=== PATIENT | male | born 1980 | race Caucasian/White ===

== ENCOUNTER 2020-01-09 18:07 | Emergency (ER) | payer SELFPAY ==
[2020-01-10] MEDS ORDERED: ZIPR20 (10:38)
[2020-01-10] MEDS ORDERED: HALO2 (10:38)
[2020-01-10] MEDS ORDERED: GABA100 (10:39)
== END 2020-01-09 19:30 | disposition left against medical advice (07) ==
LOC: ER 18:07
DX: Z53.21 Procedure and treatment not carried out due to patient leaving prior to being seen by health care provider (principal)

== ENCOUNTER 2020-01-10 10:11 | Observation (INO) | payer OTHER ==
[~2020-01-10] VITALS: Ht 177.8 cm; Wt 77.1 kg
[2020-01-10] MEDS ORDERED: ZIPR20 (10:38)
[2020-01-10] MEDS ORDERED: HALO2 (10:38)
[2020-01-10] MEDS ORDERED: GABA100 (10:39)
[2020-01-10 11:01] LABS: Source, Urine Clean Catch
[2020-01-10 11:08] LABS: Bilirubin, Urine Neg (Neg); Blood, Urine Neg (Neg); Glucose Qualitative, Urine Neg (Neg); Ketones, Urine Neg (Neg); Leukocyte Esterase, Urine Neg (Neg); Nitrite, Urine Neg (Neg); Protein, Urine Neg (Neg); Specific Gravity, Urine 1.005 (1.003-1.022); Urobilinogen, Urine NORM (Normal); pH, Urine 6.5 (5.0-8.0)
[2020-01-10 11:09] LABS: Appearance, Urine Clear (Clear); Color, Urine Pale Yellow (P-Yellow)
[2020-01-10 11:27] LABS: U Amphetamine Screen Not Detected; U Barbituate Screen Not Detected; U Benzodiazapine Screen Not Detected; U Buprenorphine Screen Not Detected; U Cannabinoids Screen Not Detected; U Cocaine Screen Not Detected; U Methadone Screen Not Detected; U Methamphetamine Screen Not Detected; U Opiates Screen Not Detected; U Oxycodone Screen Not Detected; U Phencyclidine Screen Not Detected; U Propoxyphene Screen Not Detected
[2020-01-10 11:34] LABS: BASOPHILS ABSOLUTE AUTO 0.06 K/mm3 (0.00-0.23); BASOPHILS PERCENT AUTO 1 % (0-2); EOSINOPHILS ABSOLUTE AUTO 0.07 K/mm3 (0.00-0.68); EOSINOPHILS PERCENT AUTO 1 % (0-6); Hematocrit 37.9 % (37.0-53.0); Hemoglobin 12.5 g/dL (13.5-17.5); IMMATURE GRAN ABSOLUTE AUTO 0.01 K/mm3 (0.00-0.10); IMMATURE GRAN PERCENT AUTO 0 % (0-1); LYMPHOCYTES ABSOLUTE AUTO 3.57 K/mm3 (0.84-5.20); LYMPHOCYTES PERCENT AUTO 46 % (21-46); MONOCYTES ABSOLUTE AUTO 0.42 K/mm3 (0.16-1.47); MONOCYTES PERCENT AUTO 5 % (4-13); Mean Corpuscular HGB 29.6 pg (26.0-34.0); Mean Corpuscular Volume 90 fL (80-100); Mean Platelet Volume 9.8 fL (9.1-12.4); NEUTROPHILS ABSOLUTE AUTO 3.71 K/mm3 (1.96-9.15); NEUTROPHILS PERCENT AUTO 47 % (41-73); Platelet Count 290 K/mm3 (150-400); RDW Standard Deviation 52.3 fL (35.1-46.3); Red Blood Cell Count 4.22 M/mm3 (4.30-5.90); White Blood Cell Count 7.84 K/mm3 (4.00-11.30)
[2020-01-10 11:59] LABS: Alanine Aminotransfer (ALT/SGP 36 U/L (12-78); Albumin, Blood 3.4 g/dL (3.4-5.0); Albumin/Globulin Ratio 0.9 (0.8-1.8); Alk Phos 49 U/L (50-136); Anion Gap 7 mmol/L (6-16); Aspartate Aminotrans (AST/SGOT 36 U/L (12-37); Bilirubin, Total 0.3 mg/dL (0.1-1.0); Blood Urea Nitrogen 6 mg/dL (8-24); Bun/Creatinine Ratio 9.1 (12.0-20.0); CO2, Blood 28 mmol/L (21-32); Calcium, Blood 8.2 mg/dL (8.5-10.1); Chloride, Blood 112 mmol/L (98-108); Creatinine, Blood 0.66 mg/dL (0.60-1.20); Ethanol (Alcohol), Blood, Med 299 mg/dL; Free Thyroxine 0.91 ng/dL (0.70-1.60); Globulin, Blood 3.6 g/dL (2.2-4.0); Glomerular Filtration Rate >60 (60-); Glucose, Blood 99 mg/dL (70-99); Potassium, Blood 3.7 mmol/L (3.5-5.5); Salicylate <1.7 mg/dL (2.8-20.0); Sodium, Blood 147 mmol/L (136-145)
[2020-01-10 12:02] LABS: Acetaminophen, Random <2.0 ug/mL (10.0-30.0)
[2020-01-11] MEDS ORDERED: HALO5 PO (09:54)
[2020-01-11] MEDS ORDERED: BUPR150ER PO (09:54)
[2020-01-11] MEDS ORDERED: Seroquel Xr50 MG PO (09:54)
== END 2020-01-11 11:00 | disposition home or self-care (01) ==
LOC: ER 10:11 → EOR 10:12
PROVIDERS: ADMIT Emergency Medicine
DX: F31.9 Bipolar disorder, unspecified (principal); F20.9 Schizophrenia, unspecified; F17.200 Nicotine dependence, unspecified, uncomplicated; Z88.6 Allergy status to analgesic agent; Z59.0 Homelessness; Z91.14 Patient's other noncompliance with medication regimen; F10.129 Alcohol abuse with intoxication, unspecified; Y90.8 Blood alcohol level of 240 mg/100 ml or more; Z20.828 Contact with and (suspected) exposure to other viral communicable diseases
CPT/HCPCS: 80053; 81003; 84439; 84443; 85025; 99285; G0378; G0480; Q3014

== ENCOUNTER 2020-01-14 20:15 | Inpatient (IN) | payer OTHER ==
[~2020-01-14] VITALS: Ht 175.3 cm; Wt 78.0 kg
[~2020-01-14 20:15] MED LIST: BUPR150ER PO; GABA100; HALO2; HALO5 PO; Seroquel Xr50 MG PO; ZIPR20
[2020-01-14 20:37] LABS: Source, Urine Clean Catch
[2020-01-14 20:41] LABS: Bilirubin, Urine Neg (Neg); Blood, Urine 5+ (Neg); Glucose Qualitative, Urine Neg (Neg); Ketones, Urine 2+ (Neg); Leukocyte Esterase, Urine Neg (Neg); Nitrite, Urine Neg (Neg); Protein, Urine 2+ (Neg); Specific Gravity, Urine 1.025 (1.003-1.022); Urobilinogen, Urine NORM (Normal)
[2020-01-14 20:43] LABS: Appearance, Urine Clear (Clear); Color, Urine Yellow (P-Yellow)
[2020-01-14 20:47] LABS: Amorphous Light (0-Heavy); Bacteria Few /hpf; Mucus Light (0-Heavy); Squamous Epithelial Cells Rare /hpf (Few); White Blood Cells, Urine 0-2 /hpf (0-5)
[2020-01-14 20:52] LABS: BASOPHILS ABSOLUTE AUTO 0.03 K/mm3 (0.00-0.23); BASOPHILS PERCENT AUTO 0 % (0-2); EOSINOPHILS PERCENT AUTO 0 % (0-6); Hematocrit 35.2 % (37.0-53.0); Hemoglobin 11.5 g/dL (13.5-17.5); IMMATURE GRAN ABSOLUTE AUTO 0.15 K/mm3 (0.00-0.10); IMMATURE GRAN PERCENT AUTO 1 % (0-1); LYMPHOCYTES ABSOLUTE AUTO 0.86 K/mm3 (0.84-5.20); LYMPHOCYTES PERCENT AUTO 4 % (21-46); MONOCYTES ABSOLUTE AUTO 2.08 K/mm3 (0.16-1.47); MONOCYTES PERCENT AUTO 10 % (4-13); Mean Corpuscular HGB Conc 32.7 g/dL (31.5-36.5); Mean Corpuscular Volume 89 fL (80-100); Mean Platelet Volume 10.3 fL (9.1-12.4); NEUTROPHILS ABSOLUTE AUTO 18.76 K/mm3 (1.96-9.15); NEUTROPHILS PERCENT AUTO 86 % (41-73); Platelet Count 289 K/mm3 (150-400); RDW Coefficient Variation 15.7 % (11.7-14.2); RDW Standard Deviation 51.5 fL (35.1-46.3); Red Blood Cell Count 3.96 M/mm3 (4.30-5.90); White Blood Cell Count 21.88 K/mm3 (4.00-11.30)
[2020-01-14 21:04] LABS: U Amphetamine Screen DETECTED; U Barbituate Screen Not Detected; U Benzodiazapine Screen Not Detected; U Buprenorphine Screen Not Detected; U Cannabinoids Screen Not Detected; U Cocaine Screen Not Detected; U Methadone Screen Not Detected; U Methamphetamine Screen DETECTED; U Opiates Screen Not Detected; U Oxycodone Screen Not Detected; U Phencyclidine Screen Not Detected; U Propoxyphene Screen Not Detected
[2020-01-14 21:11] LABS: Ethanol (Alcohol), Blood, Med <3 mg/dL; Salicylate 2.8 mg/dL (2.8-20.0)
[2020-01-14 21:21] LABS: Alanine Aminotransfer (ALT/SGP 84 U/L (12-78); Alk Phos 67 U/L (50-136); Anion Gap 24 mmol/L (6-16); Aspartate Aminotrans (AST/SGOT 244 U/L (12-37); Bilirubin, Total 1.3 mg/dL (0.1-1.0); Blood Urea Nitrogen 89 mg/dL (8-24); Bun/Creatinine Ratio 31.2 (12.0-20.0); CO2, Blood 13 mmol/L (21-32); Calcium, Blood 8.4 mg/dL (8.5-10.1); Chloride, Blood 93 mmol/L (98-108); Creatinine, Blood 2.85 mg/dL (0.60-1.20); Glomerular Filtration Rate 26 (60-); Glucose, Blood 49 mg/dL (70-99); Potassium, Blood 4.7 mmol/L (3.5-5.5); Sodium, Blood 130 mmol/L (136-145)
[2020-01-14 21:22] LABS: Acetaminophen, Random <2.0 ug/mL (10.0-30.0)
[2020-01-14 22:01] LABS: PCO2 Arterial 20.1 mmHg (35-45); PO2 Arterial 122 mmHg (80-100)
[2020-01-14 22:04] LABS: Magnesium, Blood 3.2 mg/dL (1.6-2.4)
[2020-01-14 22:04] LABS: pH Blood Arterial 7.25 (7.35-7.45)
[2020-01-14 22:07] LABS: Phosphorus, Blood 8.9 mg/dL (2.5-4.9)
--- NOTE | 2020-01-14 23:27 | NUR ---
2255 PT ADMITTED TO PCU 10 PER CART FROM ER; REPORT RECEIVED FROM WILMER DURAN VIA ER; PT SLIDE INTO BED X 4 ASSIST; PT HALLUCINATING AND MUMBLING INCOHERENTLY TO SELF; PT DID STAND X 1 STANDBY ASSIST AND VOIDED 800ML VIA URINAL; BED ALARM APPLIED; PT HAS ABRASIONS NOTED OVER ENTIRE BODY FROM HEAD TO TOE.
--- NOTE | 2020-01-15 04:40 | NUR ---
SHIFT SUMMARY: 39 Y/O MALE HAD VERY RESTLESS NIGHT ALL SHIFT; PT ALERT PERSON ONLY, UNABLE TO FOLLOW ANY DIRECTIONS, CONFUSED; ATTEPTING CLIMB OOB, PULL AT LINES AND TELEMETRY; JARED VEST AND BILATERAL WRIST RESTRAINTS WERE APPLIED; PT WAS GIVEN ATIVAN 2MG AND 4MG IVP AND ZYPREXA 5MG IM WITH SLIGHT AFFECT PATIENT STILL SQUIRMING AROUND IN BED AND TALKING INCOHERENTLY ALL SHIFT; PT INCONTINENT AND FREQUENTLY PULLS OFF PULL UP ATTENDS WITH LINEN AND GOWN CHANGED FREQUENTLY; BED ALARM APPLIED, BED LOW POSITION WITH CALL LIGHT AT SIDE; PT DID HAVE TEMP 102.8 WITH BLOOD CULTURES DRAWN AND PT REFUSED TO TAKE ANY TYLENOL FROM THIS NURSE AFTER HE TOOK SIPS OF WATER.
[2020-01-15 04:41] LABS: Bun/Creatinine Ratio 40.4 (12.0-20.0); Calcium, Blood 7.9 mg/dL (8.5-10.1); Creatinine, Blood 1.66 mg/dL (0.60-1.20); Potassium, Blood 4.2 mmol/L (3.5-5.5)
--- NOTE | 2020-01-15 11:32 | NUR ---
PO OJ GIVEN, DRANK WITHOUT DIFFICULTY.
--- NOTE | 2020-01-15 12:12 | NUR ---
ASSISTED PT WITH EATING A PIZZA POCKET. TOLERATED WELL.
--- NOTE | 2020-01-15 17:58 | NUR ---
SHIFT SUMMARY; SOMMULENT THROUGHOUT SHIFT, AWAKES TO VERBAL AND PAINFUL STIMULI. ORIENTED TO SELF ONLY. AGITATED AND DIFFICULT TO REDIRECT. REMAINS IN JARED VEST AND BILATERAL WRIST RESTRAINTS. REMOVE RESTRAINTS FOR REPOSITIONING AND BED CHANGE. PO FLUIDS AND LUNCH PROVIDED AND INJESTED WITHOUT DIFFICULTY. SCRATCHES THROUGHOUT BODY. BILATERAL FEET REDNESS WITH SCABS AND SCRATCHES, APPEAR TO HAVE BEEN WITHOUT SHOES OUTDOORS. MEDICATED PER ORDERS FOR AGITATION NEEDED. INTERMITANTLY YELLS AND APPEARS TO BE HAVING AUDITORY HALLUCINATIONS. MUMBLES TO SELF INTERMITANTLY. INCONTINENT IN ATTENDS MULTIPLE TIMES AND CHANGED NEEDED. LINEN CHANGE X2 DURING SHIFT. VSS, WILL CONTINUE TO MONITOR AND TREAT UNTIL CHANGE OF SHIFT.
--- NOTE | 2020-01-15 22:40 | NUR ---
PHYSICIAN NOTIFIED PT UNABLE TO TAKE PO MEDS AT THIS TIME. PT HAS FEVER OF 102.6. COOL RAGS PLACED ON PT. ORDER FOR UT TYLENOL PLACED PER PHYSICIAN. WAITING FOR PHARMACY TO VERIFY.
[2020-01-16 04:13] LABS: BASOPHILS ABSOLUTE AUTO 0.02 K/mm3 (0.00-0.23); BASOPHILS PERCENT AUTO 0 % (0-2); EOSINOPHILS ABSOLUTE AUTO 0.04 K/mm3 (0.00-0.68); EOSINOPHILS PERCENT AUTO 1 % (0-6); Hematocrit 28.7 % (37.0-53.0); Hemoglobin 9.2 g/dL (13.5-17.5); IMMATURE GRAN ABSOLUTE AUTO 0.02 K/mm3 (0.00-0.10); IMMATURE GRAN PERCENT AUTO 0 % (0-1); LYMPHOCYTES ABSOLUTE AUTO 1.39 K/mm3 (0.84-5.20); LYMPHOCYTES PERCENT AUTO 18 % (21-46); MONOCYTES ABSOLUTE AUTO 1.05 K/mm3 (0.16-1.47); MONOCYTES PERCENT AUTO 14 % (4-13); Mean Corpuscular HGB 28.8 pg (26.0-34.0); Mean Corpuscular HGB Conc 32.1 g/dL (31.5-36.5); Mean Corpuscular Volume 90 fL (80-100); Mean Platelet Volume 9.8 fL (9.1-12.4); NEUTROPHILS ABSOLUTE AUTO 5.13 K/mm3 (1.96-9.15); NEUTROPHILS PERCENT AUTO 67 % (41-73); Platelet Count 175 K/mm3 (150-400); RDW Coefficient Variation 16.2 % (11.7-14.2); RDW Standard Deviation 53.3 fL (35.1-46.3); White Blood Cell Count 7.65 K/mm3 (4.00-11.30)
[2020-01-16 04:30] LABS: Anion Gap 4 mmol/L (6-16); Blood Urea Nitrogen 24 mg/dL (8-24); Bun/Creatinine Ratio 29.4 (12.0-20.0); CO2, Blood 27 mmol/L (21-32); Calcium, Blood 8.4 mg/dL (8.5-10.1); Chloride, Blood 111 mmol/L (98-108); Creatinine, Blood 0.82 mg/dL (0.60-1.20); Glomerular Filtration Rate >60 (60-); Glucose, Blood 92 mg/dL (70-99); Potassium, Blood 3.7 mmol/L (3.5-5.5); Sodium, Blood 142 mmol/L (136-145)
--- NOTE | 2020-01-16 06:22 | NUR ---
SHIFT SUMMARY PT ALERT AND ORIENTED TO SELF. PT CONFUSED AND AGGITATED AT TIMES. MEDICATIONS GIVEN PER EMAR FOR AGGITATIOIN. PT INCOMPREHENSIBLE WITH SPEECH. PT ABLE TO USE URINAL AT TIMES. PT ABLE TO TURN SELF IN BED. PT IN JARED VEST AND BILATERAL SOFT WRIST RESTRAINTS. ASSESSED PER PROTOCOL. PT HAD INCREASE IN TEMPERATURE, PHYSICIAN NOTIFIED AND D/T ASPIRATION RISK TYLENOL SUPPOSITORY ORDERED. TEMP DECREASED TO 99.3. BP STABLE. HR STABLE. CIWA SCORE UNDER 8 T/O SHIFT. WILL CONTINUE TO MONITOR UNTIL REPORT GIVEN TO ALAINA GUILLEN.
--- NOTE | 2020-01-16 15:30 | NUR ---
DR. BENITO AT BEDSIDE. DISCUSSED POC. NOTIFIED HER RESTRAINTS WERE REMOVED THIS AM. PATIENT HAS BEEN SLEEPING THROUGHOUT MOST OF THE SHIFT AND HAS BEEN COOPERATIVE WITH CARE. HE WAS ABLE TO EAT BREAKFAST AND LUNCH. HE HAD A TEMP LAST NIGHT, HIGHEST 102.7 AND RECEIVED TYLENOL RECTALLY. HE ALSO RECEIVED HALDOL, ATIVAN, AND BENADRYL LAST NIGHT. CIWA 5-6. WHEN DR. BENITO ASSESSED PATIENT, PATIENT STATED THAT IT WAS SEPTEMBER AND THAT HE WAS IN [place]. DR. BENITO STATES PLAN IS TO CONTINUE TO MONITOR IN PCU, SHE WILL POSSIBLY START SEROQUEL TONIGHT. SHE WILL CHANGE CBG CHECKS PATIENT IS NOW EATING.
--- NOTE | 2020-01-16 19:08 | NUR ---
SHIFT SUMMARY: PATIENT HAS BEEN SLEEPING FOR MOST OF THE SHIFT. WAKES TO VERBAL STIMULATION. DISORIENTED TO DATE AND PLACE. IS ABLE TO EAT AND FEED HIMSELF BUT FALLS BACK ASLEEP QUICKLY AFTERWARDS. HAS DENIED PAIN. REPOSITIONS SELF IN BED. RESTRAINTS D/C'D THIS AM. HIGHEST CIWA 6. COOPERATIVE WITH CARE. BED ALARM ON. HAS NOT ATTEMPTED TO GET UP OOB THIS SHIFT. REPORT GIVEN TO ONCOMING RN.
--- NOTE | 2020-01-16 21:10 | NUR ---
CHARGE NURSE UPDATED PT ALERT AND ORIENTED. PT WISHES TO "KILL HIMSELF." SUICIDE SCREENING DONE PATIENT AT HIGH RISK AND NEEDS 1:1 SITTER. CHARGE NURSE NOTIFIED AND PRECAUTIONS ARE BEING INITIATED.
--- NOTE | 2020-01-16 22:13 | NUR ---
SAFETY PLAN NOTIFIED VIA VOICEMAIL TO SUMEET CLAUDIO FOR SAFETY PLAN TO BE COMPLETED.
--- NOTE | 2020-01-16 23:02 | NUR ---
SUICIDE RISK ORDERS PER TELEPHONE CALL WITH HOSPITALIST ERICKA, NO ORDER NEEDED AT THIS TIME FOR PSYCH CONSULT. ORDER WAS PREVIOUSLY ENTERED AND PT WAS EVALUATED IN THE ER PER NOTES SO THE DAY SHIFT MD CAN FOLLOW UP WITH PSYCH NEEDED.
--- NOTE | 2020-01-17 05:38 | NUR ---
SHIFT SUMMARY PT SLEPT T/O SHIFT. PT ALERT AND ORIENTED X 3-4. PT CONFUSED ON LOCATION AT TIMES. PT REPORTED TO WANT TO "KILL SELF." RIDDLE SUICIDE SCREEN DONE AND PT PUT ON HIGH RISK SUICIDE PRECAUTIONS. PHYSICIAN INFORMED. PT NOW ON 1:1 CARE. CIWA SCORES REMAINED STABLE. MEDICATED FOR AGGITATION PER EMAR. PT ABLE TO TURN SELF IN BED. PT ABLE TO USE URINAL AT BEDSIDE WITH ASSISTANCE. TELEMETRY NOTED PT TO HAVE ST DEPRESSION. 12 LEAD EKG DONE, PT IN NORMAL SINUS RHYTHM AT THIS TIME. HR STABLE. BP STABLE. WILL CONTINUE TO MONITOR UNTIL REPORT GIVEN TO DAYSHIFT RN.
--- NOTE | 2020-01-17 07:16 | NUR ---
CARE ASSUMED REPORT RECEIVED, CARE ASSUMED AT 0700 FROM WILMER ANDRADE. PT ASLEEP ON ROUNDS. RESPIRATIONS EVEN AND UNLABORED. 1:1 SITTER AT BEDSIDE.
--- NOTE | 2020-01-17 11:15 | NUR ---
DR. BENITO COMMUNICATION AFTER DR. BENITO LEFT BEDSIDE, PT EXPRESSES CONCERN REGARDING GLASS IN FEET. ALSO REQUESTING SUBOXONE. SPOKE WITH DR. BENITO REGARDING THIS CONCERN, DR. BENITO TO BEDSIDE FOR ASSESSMENT. NEW ORDER FOR SUBOXONE TO START TODAY. ALSO UPDATED DR. BENITO THAT PSYCH CONSULT WOULD BE TELEPSYCH DR. COURTNEY NOT AVAILABLE ON THE WEEKEND.
--- NOTE | 2020-01-17 11:30 | NUR ---
TELEPSYCH CONSULT SET UP FOR [id number]
--- NOTE | 2020-01-17 12:33 | NUR ---
TELEPSYCH IN PROGRESS
--- NOTE | 2020-01-17 19:23 | NUR ---
REPORT TO WILMER LUNSFORD TO ASSUME CARE AT THIS TIME
--- NOTE | 2020-01-17 19:34 | NUR ---
SUMMARY SINCE PREVIOUS NOTE, TELEPSYCH CONSULT COMPLETED. PAPER REPORT PLACED ON CHART. REVIEWED BY DR. BENITO AND RECOMMENDED MEDICATIONS PER PSYCH DOCTOR ORDERED BY DR. BENITO. ALSO DISCUSSED SUICIDE PRECAUTIONS. PER DR. BENITO, PT TO DOWNGRADE TO MODERATE RISK SUICIDE PRECAUTIONS AND BE CONTINUOUSLY MONITORED ON VIDEO. AT THIS TIME PATIENT REMAINS WITH 1:1 SITTER UNTIL CAMERA ROOM AVAILABLE. PT CONTINUES TO REPORT FEELING LIKE KILLING HIMSELF AND THAT HE WOULD DO IT BY RUNNING OUT IN FRONT OF CARS. PT REPORTS BEING THANKFUL THAT HE IS ABLE TO HAVE INPATIENT PSYCH HOSPITALIZATION AND IS WILLINGLY STAYING. HE HAS NOT MADE ANY ATTEMPTS TO HARM HIMSELF IN HOSPITAL AND IS COMPLIANT WITH CARES. CALLS APPROPRIATELY FOR NEEDS. UP TO SHOWER TODAY AND TOLERATED WELL. AFTER ADMINISTRATION OF SUBOXONE, PT HAS SLEPT ON AND OFF AND HAS HAD MINIMAL WITHDRAW SYMPTOMS. VITALS STABLE THROUGHOUT SHIFT. SEE REPEAT ASSESSMENTS.
--- NOTE | 2020-01-17 20:00 | NUR ---
ASSUMED CARE APPROXIMATELY 192 FROM [facility]; PT A&O; STATES HE IS HAVING HALLUCINATIONS; 1:1 SITTER IN ROOM; VSS; DENIES CHEST PAIN; O2 SAT >93; LUNG SOUNDS CLEAR; DENIES SOB; C/O FEET BEING SORE; PT MED NO TELE STATUS; REPORT GIVEN TO #[id number] RN; VERIFIED CAMERA ROOM AND CAMERA ON; PT BY WHEELCHAIR W/ AID W/ NO DISTRESS NOTED; TRANSFERED TO MEDICAL FLOOR.
--- NOTE | 2020-01-18 15:22 | NUR ---
SILICONE CREAM APPLIED TO BILATERAL FLANKS. LOOKS LIKE PATIENT POSSIBLY WENT THRU A PRICKER ELLISON--REDNESS BOTH SIDES WITH SOME ABRASIONS. STS "TRIED TO GET DOWN AN EIGHY FOOT HILL ON MY BUTT".
--- NOTE | 2020-01-18 18:15 | NUR ---
ADVISED THAT PATIENT MAY HAVE WIPED HIS FACE WITH HIS HAND AND POSSIBLY HAS POISON OAK TO LEFT UPPER EYELID. REQUEST SOMETHING THAT CAN BE USED ON FACE. ORDERED BENADRYL P.O 25-50 MG Q 6 PRN ITCHING.
--- NOTE | 2020-01-18 18:29 | NUR ---
ALERT. DOES NOT KNOW DATE. STS MIND "LITTLE FOGGY." STS "SOMEONE STOLE HIS CAR". STS HE JUST BOUGHT THE CAR AND DOES NOT HAVE IT REGISTERED, LICENSED OR HAVE A LICENSE. WAS GIVEN PHONE HE WANTED TO MAKE A POLICE REPORT. ROUSTABOUT CREW PUSHER WAS IN ROOM FOR CALL WITH PHONE PLACED IN LOCKUP AFTER CALL. MEDS FOR POISON OAK. COOPERATIVE WITH CARE. PRABHA
--- NOTE | 2020-01-19 06:23 | NUR ---
DRAFTER ASSISTANT SUMMARY PT A/O X4. PT STATES HE STILL HAS THOUGHTS OF HURTING HIMSELF SINCE LAST ASSESSED, HOWEVER DOES NOT HAVE PLANS TO ACT UPON IT. POLITE AND COOPERATIVE. PT'S CIWAS ARE STABLE. MOSTLY FEELS ITCHY BECAUSE FROM POISION OAK. CREAM APPLIED FOR THIS ON BILTERAL ARMS, LEGS, AND BACK. BENADRYL GIVEN ONCE OVERNIGHT. PT'S BILTERAL FEET ARE EDEMATOUS. PT EXPRESSED THAT HE IS CONCERNED ABOUT GETTING FROSTBITE. BILATERAL FEET ARE WARM TO TOUCH, RED AND EDEMATOUS. CAP REFILLS ON BILATERAL FT ARE LESS THAN 3 SECS. FEET ARE ELEVATED OVERNIGHT. CAMERA MONITOR ON.
--- NOTE | 2020-01-19 14:40 | NUR ---
NO Suicide Safety Plan completed. Pt reports active suicidal ideation --plan to jump in front of cars. he was brought in by police [place] he was on side of highway. Pt reports gastric bypass in 2011, and "its all been downhill since then". he thinks he maybe changed addictions and now drinks and uses heroine and meth. 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 he says he is fine with substance abuse as long as he does not have money--when he gets money he sues. He is from [place] and been in [place] 3 months. Has been in treatment 10x or so, and has been hospitalized psychiatrically. Reports he was hospitalized 6 months ago and was given Invega injectible, but he did not follow up. Has active visual hallucinations. Telepsych consult recommended medications and psychiatric hospitalization. Ngoc Gonzalez M.Ed., [facility], Behavior health Director
--- NOTE | 2020-01-19 18:41 | NUR ---
SHIFT SUMMARY PT HAS BEEN INDEPENDENT IN ROOM. REPORTS DISCOMFORT TO FEET THIS MORNING. ENCOURAGED TO KEEP THEM ELEVATED WHILE IN BED. SHOWERED THIS EVENING. HAS BEEN COOPERATIVE WITH ALL CARE. STATED THIS MORNING HIS PLAN FOR SUICIDE IF HE WASN'T IN THE HOSPITAL AND FELT SAFE WAS TO JUMP OUT IN FRONT OF A CAR. HAS CALLED [facility] AND ARRANGED FOR VEHICLE TO STAY THERE WHILE IN HOSPITAL. HAS ALSO SPOKEN WITH FAMILY TO INFORM THEM OF HIS POSSIBLE DISCHARGE TO [facility].
--- NOTE | 2020-01-19 20:10 | NUR ---
ASSUMED CARE. SAM REPORTS THOUGHTS OF SI, ANXIETY OF 10/10. FEELING THAT IF HE IS ON HIS OWN IT WILL GET WORSE. HE THINKS ABOUT JUMPING IN FRONT OF A TRUCK. DENIES ANY PLANS TO HURT SELF HERE IN THE HOSPITAL. TALKS ABOUT REMORSE OF RELAPSE AND WANTING TO GET HIS LIFE TOGETHER FOR HIS KIDS. HE DOES NOT WANT TO GO BACK TO ASSISTED AND STATES HE KNOWS IF HE STAYS ON THIS PATH THEN HE WILL. SAT AND LISTENED TO HIS STORIES AND PLANS ON HOW TO IMPROVE. ENCOURAGED COUNCELING WHEN HE GETS TO THE FACILITY AND JOURNALING. DISUCSSED WRITING LETTERS WELL TO THOS HE THINKS ABOUT. MEDICATED PER EMAR. APPLIED CREAM TO ARMS AND FEET AND BACK RASH. GAVE BENADRYL FOR ITCHING OF THE RASH. REST OF ASSESSMENT GOOD. ROOM CLEAR OF ITEMS, SMALL CALL LIGHT PLUGGED IN. DENIES ANY OTHER NEEDS AT THIS TIME.
--- NOTE | 2020-01-20 05:41 | NUR ---
SHIFT SUMMARY: SAM HAS BEEN PLEASANT AND COOPERATIVE THIS SHIFT. BEFORE GOING TO BED HE DID STILL ADMIT TO SUICIDAL INTENSION. STATING THAT IF HE GETS OUT OF HERE HE WILL JUMP IN FRONT OF THE CAR. HE IS HOPEING GOING TO THE FACILITY WILL HELP HIM GET BACK ON TRACK. RASH ON BODY STILL RED AND ITCHING, PAIN WAS NOTED IN FEET, MEDICATED WITH TYLENOL. INDEPENDENT IN THE ROOM. VS WNL, AFEBRILE. SLEPT WELL T/O NIGHT. USES CALL LIGHT APPROPRIATLY. CALL LIGHT IN REACH.
--- NOTE | 2020-01-20 15:41 | NUR ---
Patient is sitting up in bed and alert. Patient tells me about his personal struggles with addiction and self sabotage. I talk to patient about the spiritual side of hope, self worth and meaning and purpose. Patient tells me about his Orthodoxy upbringing. I normalize patient's fears and provide inspirational reading matierials, pastoral peer counselor and prayer. Patient responds well and shows signs of increased hope. I will continue to remain available to patient and family.
--- NOTE | 2020-01-20 18:40 | NUR ---
REPORT CALLED TO JUSTYN AT [facility] THIS AFTERNOON AT 1415. HAD REQUESTED FROM FACILITY THAT PT ARRIVE THERE APPROX 2100. ARRANGEMENTS MADE FOR SECURE TRANSPORT AT 1800. PT AWARE OF ALL PLANS. SECURE TRANSPORT HERE AT 1820 AND PT DISCHARGED BY AMBULATION WITH TRANSPORTATION ACCOMPANYING.
== END 2020-01-20 18:27 | disposition short-term general hospital (02) | DRG 917 ==
LOC: ER 20:15 → EOR 20:16 → MEDS 21:53 → PCU 21:53 → EOR 21:53 → PCU 21:54 → MEDS 01-17 20:24
PROVIDERS: Internal Medicine; ADMIT Emergency Medicine
DX: T43.621A Poisoning by amphetamines, accidental (unintentional), initial encounter (principal); G92 Toxic encephalopathy; R45.851 Suicidal ideations; E87.1 Hypo-osmolality and hyponatremia; E87.2 Acidosis; F11.20 Opioid dependence, uncomplicated; F23 Brief psychotic disorder; N17.9 Acute kidney failure, unspecified; R65.10 Systemic inflammatory response syndrome (SIRS) of non-infectious origin without acute organ dysfunction; E16.2 Hypoglycemia, unspecified; E83.39 Other disorders of phosphorus metabolism; E86.1 Hypovolemia; F10.20 Alcohol dependence, uncomplicated; F17.210 Nicotine dependence, cigarettes, uncomplicated; F19.10 Other psychoactive substance abuse, uncomplicated; F20.9 Schizophrenia, unspecified; F31.9 Bipolar disorder, unspecified; D63.1 Anemia in chronic kidney disease
CPT/HCPCS: 36415; 36600; 71045; 76770; 80048; 80053; 81001; 82803; 82947; 83735; 83930; 83935; 84100; 85025; 87040; 93005; 93010; 96365; 96366; 96372-59; 96375; 99285-25; A9270; A9270-GY; C9113; G0480; J1200; J1630; J1644; J2060; J3411; J7030; J7042; J7120; Q0163; U0004